=== PATIENT | female | born 1950 | race Caucasian/White ===

== ENCOUNTER 2020-06-15 08:20 | Outpatient (CLI) | payer MEDICARE, SELFPAY ==
--- NOTE | ~2020-06-15 | MM_ITS ---
EXAMINATION: MM screening taryn BI w ivy HISTORY: Screening mammogram TECHNIQUE: Craniocaudal and mediolateral oblique 3-D tomosynthesis images were obtained and synthetic 2-D images were generated. CAD analysis was submitted and interpreted. COMPARISON: 03/17/2019, 07/15/2017, 09/04/2010 bilateral digital screening mammogram BREAST PARENCHYMAL COMPOSITION: The breasts are heterogeneously dense, which may obscure small masses . 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 There is no evidence of interval suspicious mass, calcification, or architectural d istortion to suggest malignancy in either breast. There has been no suspicious interval change. IMPRESSION: 1. No mammographic evidence of malignancy. 2. Recommend routine screening mammography in one year. BI-RADS Category 2: Benign finding(s). Reviewed, dictated and finalized at location A.
== END 2020-06-15 08:21 | disposition home or self-care (01) ==
LOC: ANHIMG 08:24
PROVIDERS: PCP Nurse Practitioner Family; Visit Provider Nurse Practitioner Family
DX: Z12.31 Encounter for screening mammogram for malignant neoplasm of breast (principal)
CPT/HCPCS: 77063; 77067

== ENCOUNTER 2023-12-23 15:16 | Emergency (ER) | payer MEDICARE, SELFPAY ==
--- NOTE | ~2023-12-23 | US_ITS ---
EXAMINATION: US venous doppler [facility] DATE: 12/23/2023 18:12 INDICATION: Left leg pain and swelling TECHNIQUE: Balderas scale images without and with compression and Doppler images of the left lower extrem ity veins were obtained. COMPARISON: None FINDINGS: The left common femoral vein, profunda femoral vein, femoral vein, popliteal vein, peroneal trunk, posterior tibial veins, and greater saphenous vein are patent. IMPRESSION: 1. Patent left lower extremity veins. No evidence of deep venous thrombosis. Reviewed, dictated and finalized at location F.
--- NOTE | ~2023-12-23 | XR_ITS ---
XR knee LT min 4V 12/23/2023 16:12 Indication: Left knee pain and swelling Procedure: 4 views left knee Comparison: No prior studies for comparison. Findings: There is moderate tricompartment osteoarthritis. Chondrocalcinosis. Osteopenia. No signific ant joint effusion. No acute fracture or traumatic malalignment. There is atherosclerosis. Impression: 1: Moderate tricompartment osteoarthritis with chondrocalcinosis. Reviewed, dictated and finalized at location L. Impression: 1: Moderate tricompartment osteoarthritis with chondrocalcinosis.
[2023-12-23 16:00] VITALS: BP 134/54; PULSE 89; RESP 16; TEMP 36.4; O2SAT 98
--- NOTE | 2023-12-23 17:23 | ED.LOWEXIN ---
HPI - Extremity Injury (Lower) General Chief Complaint: Extremity Injury, Lower <Sandra Bedolla PA-C - Last Filed: 12/23/23 19:10> Stated Complaint: L knee swollen <Sandra Bedolla PA-C - Last Filed: 12/23/23 19:10> Time Seen by Provider: 12/23/23 16:23 <Sandra Bedolla PA-C - Last Filed: 12/23/23 19:10> Source: patient <LUIZ Conti Last Filed: 12/23/23 19:10> Mode of arrival: ambulatory <Sandra Bedolla PA-C - Last Filed: 12/23/23 19:10> Limitations: no limitations <Sandra Bedolla PA-C - Last Filed: 12/23/23 19:10> History of Present Illness HPI Narrative: This is a 73 year old female that presents to the ER for left knee pain and swelling. Ongoing over the last couple of days. No recent injuries or trauma. The pain is worse with movement and weight bearing. Relieved with rest. Reports decreased ROM due to pain. Denies numbness. <Sandra Bedolla PA-C - Last Filed: 12/23/23 19:10> Related Data Allergies/Adverse Reactions: Allergies Allergy/AdvReac Type Severity Reaction Status Date / Time No Known Allergies Allergy Unverified 10/01/17 07:41 <Sandra Bedolla PA-C - Last Filed: 12/23/23 19:10> Review of Systems Review of Systems: CONSTITUTIONAL: Denies fever SKIN: Denies rash MUSCULOSKELETAL: Reports joint pain, and myalgia. NEUROLOGIC: Denies numbness, or weakness. <Sandra Bdeolla PA-C - Last Filed: 12/23/23 19:10> All systems reviewed & are unremarkable except as noted in HPI and below <Sandra Bedolla PA-C - Last Filed: 12/23/23 19:10> [facility] Past Medical History Medical History: Medical History Essential hypertension Smoker <LUIZ Conti Last Filed: 12/23/23 19:10> Family History Family History: Family History (Updated 10/04/17 @ 10:28 by DOCTOR UNKNOWN) Father Family history of heart disease in male family member before age 55 Other Family history of Alzheimer's disease <Sandra Bedolla PA-C - Last Filed: 12/23/23 19:10> Social History Social History: Social History Alcohol intake: current <Sandra Bedolla PA-C - Last Filed: 12/23/23 19:10> Exam Narrative: GENERAL: Well-appearing, well-nourished, and in no acute distress. HEAD: Normocephalic, atraumatic. EYES: EOMI. EXTREMITIES: Normal range of motion. No erythema. Mild edema about the left knee anteriorly. Normal DP pulse. Normal sensation SKIN: Warm, dry, no rash. NEURO: No focal deficits. Alert and oriented x3. PSYCH: Normal mood and affect <Sandra Bedolla PA-C - Last Filed: 12/23/23 19:10> Course Course Emergency Course: Patient and family updated on workup and agrees with plan of care <Sandra Bedolla PA-C - Last Filed: 12/23/23 19:10> [employer]/PA Physician Supervision For this patient encounter, I reviewed the TRANSACTIONAL [employer]GAL or PA documentation, treatment plan, and medical decision making; and I had [id number] time with this patient. <Moisés Gomez MD - Last Filed: 12/23/23 19:41> Vital Signs Vital signs: Vital Signs Temperature 97.5 F L 12/23/23 16:00 Pulse Rate 89 12/23/23 16:00 Respiratory Rate 16 12/23/23 16:00 Blood Pressure 134/54 L 12/23/23 16:00 Pulse Oximetry 98 12/23/23 16:00 Temperature 97.5 F L 12/23/23 16:00 Pulse Rate 86 12/23/23 19:34 Respiratory Rate 18 12/23/23 19:34 Blood Pressure 128/86 12/23/23 19:34 Pulse Oximetry 98 12/23/23 19:34 <Sandra Bedolla PA-C - Last Filed: 12/23/23 19:10> Vital Signs Temperature 97.5 F L 12/23/23 16:00 Pulse Rate 89 12/23/23 16:00 Respiratory Rate 16 12/23/23 16:00 Blood Pressure 134/54 L 12/23/23 16:00 Pulse Oximetry 98 12/23/23 16:00 Temperature 97.5 F L 12/23/23 16:00 Pulse Rate 86 12/23/23 19:34 Respiratory Rate 18 12/23/23 19:34 Blood Pressure 128/86 12/23/23 19:34 Pulse Oximetry 98 12/23/23 19:34 <Moisés Gomez MD - Last Filed: 12/23/23 19:41>
[2023-12-23] MEDS: KETOROLAC 30 MG/ML VIAL (*BKC) IM (17:34)
[2023-12-23 17:36] LABS: Basophils Absolute Auto 0.1 K/mm3 (0.0-0.1); Basophils Percent Auto 0.5 % (0.2-1.2); Eosinophils Percent Auto 0.2 % (0-4.4); Hematocrit 42.3 % (37.0-47.0); Immature Granulocyte Absolute 0.04 K/mm3 (0.00-0.031); Immature Granulocyte Percent A 0.3 % (0-0.5); Lymphocytes Absolute Auto 1.46 K/mm3 (0.9-3.2); Lymphocytes Percent Auto 11.1 % (18.3-44.2); Mean Corpuscular HGB Conc 33.1 g/dl (32-36); Mean Corpuscular Hemoglobin 30.6 pg (26-34); Mean Corpuscular Volume 92.6 fl (80-100); Mean Platelet Volume 10.6 fl (7.4-10.4); Monocytes Absolute Auto 1.2 K/mm3 (0.1-0.6); Monocytes Percent Auto 8.9 % (2.6-8.5); Neutrophils Absolute Auto 10.4 K/mm3 (1.3-6.7); Platelet Count Result 224 k/mm3 (150-375); Red Blood Count 4.57 M/mm3 (4.2-5.4); Red Cell Distribution Width 13.7 % (11.5-14.5); White Blood Count 13.2 K/mm3 (4.5-10.0)
[2023-12-23 17:49] LABS: Anion Gap 6 mmol/L (4-12); Blood Urea Nitrogen 17 mg/dL (7-17); CRP 2.9 mg/dL (<1.0); Calcium 10.1 mg/dL (8.4-10.2); Carbon Dioxide 27 mmol/L (22-30); Chloride 93 mmol/L (98-107); Estimated CRCL calculation 63 ml/min; Estimated Glomerular Filt Rate > 60; Glucose 107 mg/dL (65-110); Potassium 4.3 mmol/L (3.4-5.0); Sodium 126 mmol/L (137-145)
[2023-12-23 18:06] LABS: Erythrocyte Sedimentation Rate 12 mm/hr (0-20)
[2023-12-23 18:36] LABS: Uric Acid 4.3 mg/dL (2.5-7.5)
[2023-12-23] MEDS: SODIUM CHLORIDE 0.9% IV 500 ML 999 ML IV CONT (18:56)
[2023-12-23 19:00] VITALS: BP 148/86; PULSE 90; RESP 16; O2SAT 97
[2023-12-23 19:34] VITALS: BP 128/86; PULSE 86; RESP 18; O2SAT 98
== END 2023-12-23 19:36 | disposition home or self-care (01) ==
PROVIDERS: Emergency Provider Physician Assistant; PCP Nurse Practitioner Family
DX: M25.562 Pain in left knee (principal); E87.1 Hypo-osmolality and hyponatremia; M17.12 Unilateral primary osteoarthritis, left knee; I10 Essential (primary) hypertension; F17.210 Nicotine dependence, cigarettes, uncomplicated; M79.89 Other specified soft tissue disorders
CPT/HCPCS: 36415; 73564; 80048; 84550; 85025; 85652; 86140; 93971; 96360; 96372; 99284; J1885; J7040